=== PATIENT | male | born 1985 | race Caucasian/White ===

== ENCOUNTER 2024-04-21 08:55 | Day surgery (SDC) | payer OTHER ==
[~2024-04-21] VITALS: Ht 188 cm; Wt 107.8 kg
[~2024-04-21 08:55] MED LIST: ADV500INH INH; MONT-5 PO; OMEP1CAP73 PO; VENTAER INH
[2024-04-21] MEDS ORDERED: fentaNYL 100 MCG/2 ML INJECTION As Ordered ONE (09:17)
[2024-04-21] MEDS ORDERED: propofoL 200 MG/20 ML VIAL As Ordered ONE (09:18)
[2024-04-21] MEDS ORDERED: ROCURONIUM BROMIDE 50MG/5ML VIAL As Ordered ONE (09:18)
[2024-04-21] MEDS ORDERED: ONDANSETRON 4MG 2ML VIAL As Ordered ONE (09:18)
[2024-04-21] MEDS ORDERED: MIDAZOLAM INJ 2MG/2ML VIAL As Ordered ONE (09:18)
[2024-04-21] MEDS ORDERED: SUGAMMADEX SODIUM 500 MG/5 ML VIAL (BRIDION) As Ordered ONE (09:18)
[2024-04-21] MEDS ORDERED: LIDOCAINE 2% 100MG/5ML SDV (FOR ANES.) As Ordered ONE (09:18)
[2024-04-21] MEDS ORDERED: ACETAMINOPHEN 1000MG 100ML IV BAG As Ordered ONE (09:19)
[2024-04-21] MEDS ORDERED: LR 1,000 ML IV SCH ×2 (09:25→12:10)
[2024-04-21] MEDS: PHENYLEPHRINE 0.5% NASAL SPRAY 15 ML As Ordered ONE (10:15)
[2024-04-21] MEDS: AMPICILLIN SOD/SULBACTAM SOD 3 GM in D5W MINI-BAG PLUS 100 ML IV ONE (10:25)
[2024-04-21] MEDS: LIDOCAINE 2% W/ EPINEPHRINE 1.7 ML DENTAL INJ As Ordered ONE (10:39)
[2024-04-21] MEDS ORDERED: ONDANSETRON 4MG 2ML VIAL IV PRN (12:10)
[2024-04-21] MEDS ORDERED: oxyCODONE 5MG TAB PO PRN (12:10)
[2024-04-21] MEDS ORDERED: fentaNYL 100 MCG/2 ML INJECTION IV PRN (12:10)
[2024-04-21] MEDS: HYDROMORPHONE HCL 0.5 MG/ 0.5 ML SYRINGE IV PRN (12:27)
[2024-04-21 13:40] VITALS: BP 143/89; TEMP 97.8; O2SAT 96
== END 2024-04-21 14:13 | disposition home or self-care (01) ==
LOC: M SDC 08:55
PROVIDERS: ATTEND Dentist
DX: K02.9 Dental caries, unspecified (principal); J45.909 Unspecified asthma, uncomplicated; K21.9 Gastro-esophageal reflux disease without esophagitis; Z79.51 Long term (current) use of inhaled steroids; Z79.899 Other long term (current) drug therapy
CPT/HCPCS: 41899; 88300; C9290; J0131; J0295; J1100; J1170; J2250; J2405; J3010